=== PATIENT | male | born 1990 | race Caucasian/White ===

== ENCOUNTER 2021-06-25 17:58 | Emergency (ER) | payer OTHER, SELFPAY ==
[2021-06-25 18:12] VITALS: BP 132/81; PULSE 110; RESP 15; TEMP 37.1; O2SAT 98; BMI 28.1
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
[2021-06-25] MEDS: clindamycin 150 mg Capsule 300 MG PO (20:06)
[2021-06-25] MEDS: tetanus-dipt-pertussis 0.5 mL SDV IM (20:06)
== END 2021-06-25 20:09 | disposition home or self-care (01) ==
PROVIDERS: Emergency Provider Nurse Practitioner Family; PCP Family Medicine
DX: S61.451A Open bite of right hand, initial encounter (principal); Y04.1XXA Assault by human bite, initial encounter; Z23 Encounter for immunization; Y99.0 Civilian activity done for income or pay
CPT/HCPCS: 90471; 90715; 99283